=== PATIENT | male | born 1965 | race Caucasian/White ===

== ENCOUNTER → 2021-07-22 09:56 | Outpatient (CLI) | payer OTHER, SELFPAY ==
--- NOTE | 2021-07-22 | DI.MRI.S_ITS ---
PROCEDURE: MR HEAD/BRAIN WO/W CON INDICATIONS: 56-year-old male with history of traumatic brain injury TECHNIQUE: Noncontrast axial T1 spin echo, axial T2 fast spin echo, sagittal and axial FLAIR, coronal T2 fast spin echo, axial gradient echo, axial diffusion and ADC through the brain. After the administration of contrast, axial and coronal 3D VIBE or T1 spin echo with fat saturation through the brain. COMPARISON: [facility], MR, BRAIN WITH AND WITHOUT CONTRAS, 10/16/2005, 18:38. [facility], CT, HEAD WITHOUT CONTRAST, 03/20/2016, 8:26. [facility], MR, BRAIN WITH AND WITHOUT CONTRAS, 11/02/2006, 13:15. FINDINGS: Cerebrum, Cerebellum and Brainstem: Left temporal fluid filled resection cavity is again noted unchanged. There is left frontal encephalomalacia and gliosis stable from the prior exam. No underlying enhancement or change is present. Otherwise, there is mild cerebral and cerebellar volume loss as well as mild multifocal hyperintensities in the deep and subcortical white matter present. The diffusion sequence is normal without evidence of acute infarct. No intracranial hemorrhage, mass lesion or midline shift. Basal cisterns and foramen magnum contain appropriate anatomy and vascular flow voids. No evidence of dural or leptomeningeal thickening. Ventricles: Appropriate in size and position. No hydrocephalus. Skull Base: The bony sella, pituitary gland and infundibulum unremarkable. Clivus and craniovertebral relationships are appropriate. Visualized portions of the seventh and eighth cranial nerve complexes and internal auditory canals are within normal limits. Scalp and Calvarium: Old healed left frontal temporal craniotomy secured by mesh and single round plate. Bony calvarium unremarkable. Paranasal Sinuses: Mild bilateral maxillary sinus mucosal thickening and debris noted along the floors both maxillary sinuses. Mastoids: Unremarkable as visualized. No mastoid effusion present. Orbits: The orbits, globes and ocular muscles are unremarkable. IMPRESSION: 1. Stable left frontotemporal encephalomalacia and gliosis associated with old craniotomy changes, consistent with sequelae of prior traumatic brain injury 2. No acute intracranial findings. No intracranial hemorrhage, acute infarct or mass lesion 3. Mild bilateral maxillary mucosal sinus disease Approved by: Tyrone Miller M.D. on 07/22/2021 at 12:16
== END ==
PROVIDERS: PCP Family Medicine; Referring Provider Family Medicine; Visit Provider Family Medicine
DX: S09.90XD Unspecified injury of head, subsequent encounter (principal); G93.89 Other specified disorders of brain; F07.0 Personality change due to known physiological condition; G40.909 Epilepsy, unspecified, not intractable, without status epilepticus; J32.0 Chronic maxillary sinusitis
CPT/HCPCS: 70553; A9579

== ENCOUNTER → 2021-10-01 13:10 | Outpatient (CLI) | payer OTHER, SELFPAY ==
--- NOTE | 2021-10-01 | DI.RAD.S_ITS ---
PROCEDURE: XR SHOULDER RT MIN 2V INDICATIONS: right shoulder TECHNIQUE: 3 views of the shoulder were acquired. COMPARISON: None. FINDINGS: Bones: No fractures or dislocations. No suspicious bony lesions. Mild degenerative joint disease of the acromioclavicular and glenohumeral joint. There is a prominent under articular osteophyte in the distal clavicle. Visualized ribs appear intact. Soft tissues: Soft tissue calcification the healed head, compatible with rotator cuff calcific tendinitis. IMPRESSION: 1. Mild degenerative joint disease. 2. Calcific tendinitis of the rotator cuff. 3. Prominent undersurface osteophyte in the distal clavicle. Dictated by: August Ghosh M.D. on 10/01/2021 at 17:42 Approved by: August Ghosh M.D. on 10/01/2021 at 17:44
--- NOTE | 2021-10-01 | DI.RAD.S_ITS ---
PROCEDURE: XR HIP W PEL IF DONE RT 2V INDICATIONS: Pain in right hip TECHNIQUE: AP pelvis and lateral view of the right hip acquired. COMPARISON: [facility], , HIP 2V RIGHT, 09/14/2009, 8:51. FINDINGS: Bones: Patient is status post right hip arthroplasty, with hardware components in expected positions. The hip joint appears congruent. The visualized bony structures appear intact. Soft tissues: Overlying postoperative changes are noted. No suspicious soft tissue densities. IMPRESSION: Right hip arthroplasty with prosthesis in anatomic alignment. If clinical symptoms persist or clinical suspicion for prosthesis loosening or infection is high, a triple phase bone scan may be helpful for further evaluation. Dictated by: August Ghosh M.D. on 10/01/2021 at 17:44 Approved by: August Ghosh M.D. on 10/01/2021 at 17:46
== END ==
PROVIDERS: PCP Family Medicine; Referring Provider Family Medicine; Visit Provider Family Medicine
DX: M19.011 Primary osteoarthritis, right shoulder (principal); M75.31 Calcific tendinitis of right shoulder; M25.511 Pain in right shoulder; M70.71 Other bursitis of hip, right hip; Z96.641 Presence of right artificial hip joint
CPT/HCPCS: 73030; 73502

== ENCOUNTER 2022-03-27 10:16 | Emergency (ER) | payer OTHER, SELFPAY ==
[2022-03-27 10:22] VITALS: BP 157/97; PULSE 61; RESP 15; TEMP 36.3; O2SAT 98; BMI 31.1
[2022-03-27 10:59] LABS: COVID19 -Nasal RAPID POSITIVE (Negative)
--- NOTE | 2022-03-27 11:30 | ED.GENADULT ---
HPI - General Adult General Chief complaint: Upper Respiratory Symptoms Stated complaint: Wants covid test- direct contact in ER yesterday Time Seen by Provider: 03/27/22 11:23 Source: patient Mode of arrival: Ambulatory History of Present Illness HPI narrative: 56-year-old male who recently had an exposure to COVID. He states that last evening he started to have some chest congestion and runny nose. Came into the emergency department today for a COVID test. No underlying lung pathology. He has had the COVID vaccine and booster. Related Data Home Medications Medication Instructions Recorded Confirmed BUPRENORPHINE/NALOXONE (SUBOXONE) 1 tab sublingual BID ##0 02/07/13 atenolol 100 mg tablet 100 mg PO QDAY ##0 02/07/13 Allergies Allergy/AdvReac Type Severity Reaction Status Date / Time No Known Drug Allergies Allergy Verified 03/27/22 10:22 Review of Systems Constitutional Constitutional: Reports system reviewed and no additional complaints, except as documented Cardiovascular Cardiovascular: Reports system reviewed and no additional complaints, except as documented Respiratory Respiratory: Reports system reviewed and no additional complaints, except as documented Gastrointestinal Gastrointestinal: Reports system reviewed and no additional complaints, except as documented Hematologic/Lymphatic On Anticoagulants: No Patient History Social History Smoking Status: Unknown if ever smoked Smoking Status: Unknown if ever smoked alcohol intake frequency: holidays/special occasions only Substance Use Type: does not use Exam Initial Vital Signs Initial Vital Signs: Vital Signs Temperature 97.4 F L 03/27/22 10:22 Pulse Rate 61 03/27/22 10:22 Respiratory Rate 15 03/27/22 10:22 Blood Pressure 157/97 H 03/27/22 10:22 Pulse Oximetry 98 03/27/22 10:22 Oxygen Delivery Method 03/27/22 10:22 Const General: cooperative and comfortable HENMT Head: normal to inspection and normocephalic Resp Effort & Inspection: normal respiratory effort Cardio Rate: regular rate Skin General: no rashes or lesions noted Neuro General: patient alert, patient awake and moves all extremities Extrem General: normal to inspection Course Orders Ordered: ED Orders 03/27/22 10:28 COVID19 -Nasal RAPID/Pre-Proc Stat Vital Signs Vital signs: Vital Signs - 8 hr 03/27/22 10:22 Temperature 97.4 F L Pulse Rate 61 Respiratory Rate 15 Blood Pressure 157/97 H Pulse Oximetry 98 Oxygen Delivery Method Room Air Medical Decision Making Lab Data Labs: Lab Results 03/27/22 Range/Units 10:28 SARS-CoV-2 (PCR) Positive H (Negative) MDM Narrative Medical decision making narrative: Well-appearing, not hypoxic. Not tachypneic. No underlying lung pathology. Is COVID positive. I did discuss this with him. We discussed a needs to follow current CDC guidelines. He was given return precautions. He expressed understanding and agreement. Discharge Plan Departure Patient Disposition: Home Clinical Impression: COVID-19 Instructions: DI for COVID-19 (Suspected or Confirmed ) Activity Restrictions/Additional Instructions: Recommend that you continue to take all of your medications as directed. Follow current CDC guidelines with regard to quarantine. Return to the emergency department for any worsening problems breathing. Prescriptions: No Action atenolol 100 MG tablet 100 mg PO QDAY Qty: 0 BUPRENORPHINE/NALOXONE (SUBOXONE) 1 tab Sublingual BID Qty: 0 Referrals: Adalid Keys MD [Primary Care Provider] - Visit Report Forms: Patient Portal/API
== END 2022-03-27 11:36 | disposition home or self-care (01) ==
PROVIDERS: Emergency Provider Emergency Medicine; PCP Family Medicine
DX: U07.1 COVID-19 (principal)
CPT/HCPCS: 87635; 99281; 99282; C9803

== ENCOUNTER 2022-04-13 11:11 | Emergency (ER) | payer OTHER, SELFPAY ==
[2022-04-13] VITALS (9 sets, daily range): BP systolic 143–163; BP diastolic 82–93; PULSE 56–63; RESP 18; TEMP 36.9; O2SAT 93–98; BMI 37.3
--- NOTE | 2022-04-13 11:47 | ED.BACK ---
HPI - Back Pain/Injury General Chief Complaint: Back Pain/Injury Stated Complaint: back pain Time Seen by Provider: 04/13/22 11:46 Source: patient History of Present Illness HPI Narrative: 56-year-old male nonsmoker with prior lumbar fusions, prior traumatic brain injury in prior opioid abuse presents by EMS for evaluation of lower back pain with radiation down both legs. He states that he had been fine in his normal state of health until doing some yd work yesterday and while bending, and twisting while shoveling felt a pull in his lower back. He now has pain that radiates down both legs which is sharp and stabbing. His pain is worse with motion and improves with rest. He denies any numbness, tingling, weakness or footdrop. He denies any use of IV drugs or blood thinners. He denies numbness in his groin or testicles. He denies any loss of control of bowel or bladder. Related Data Home Medications Medication Instructions Recorded Confirmed BUPRENORPHINE/NALOXONE (SUBOXONE) 1 tab sublingual BID ##0 02/07/13 atenolol 100 mg tablet 100 mg PO QDAY ##0 02/07/13 Previous Rx's Medication Instructions Recorded cyclobenzaprine 10 mg tablet 10 mg PO TID PRN muscle spasm #14 04/13/22 tabs gabapentin 300 mg capsule 300 mg PO BEDTIME #14 caps 04/13/22 ketorolac 10 mg tablet 10 mg PO Q6H PRN pain #14 tabs 04/13/22 methylprednisolone 4 mg tablets in See Rx Instructions PO .COMPLEX 04/13/22 a dose pack (Medrol (Juan Carlos)) #21 ea Allergies Allergy/AdvReac Type Severity Reaction Status Date / Time No Known Drug Allergies Allergy Verified 03/27/22 10:22 Review of Systems Review of Systems Narrative: GENERAL: Denies chills, fatigue, malaise, fever, sweats. HEENT: Denies sinus pain, ear pain, sore throat, difficulty swallowing, dizziness. RESPIRATORY: Denies dyspnea, cough, wheezing, hemoptysis, sputum. CARDIOVASCULAR: Denies chest pain, palpitations, orthopnea, edema, GASTROINTESTINAL: Denies nausea, vomiting, abdominal pain, diarrhea, constipation, melena. : Denies dysuria, frequency, incontinence, hematuria, urinary retention. MUSCULOSKELETAL: See HPI SKIN: Denies rash, skin lesions, or other NEUROLOGIC: See HPI PSYCHIATRIC: No concerning psychosocial issues. 12 point review of systems is negative except for those stated above Patient History Social History Smoking Status: Unknown if ever smoked Smoking Status: Unknown if ever smoked alcohol intake frequency: holidays/special occasions only Substance Use Type: does not use Exam Narrative Exam Narrative: GENERAL: [56] year old patient appears stated age. Well-developed patient, in mild distress. HEAD: Atraumatic. Normocephalic. EYES: Pupils equal round and reactive. Extraocular motions intact. No scleral icterus. No injection or drainage. ENT: Nose without bleeding, purulent drainage. Throat without erythema, tonsillar hypertrophy or exudate. Airway patent. NECK: Trachea midline. Non tender CARDIOVASCULAR: Regular rate and rhythm without murmurs, gallops, or rubs. RESPIRATORY: Clear to auscultation. Breath sounds equal bilaterally. No wheezes, rales, or rhonchi. GASTROINTESTINAL: Abdomen soft, non-tender, nondistended. EXTREMITIES: No edema or joint tenderness. BACK: branding machine tender but free of any obvious external abnormalities. Patient exam notes decreased range of motion and muscle spasm, but no CVA tenderness, or vertebral point tenderness. There are no symptoms of cauda equina such as saddle anesthesia, and decreased reflexes, decreased sensation or strength. NEURO: AOx3. SKIN: No rash or erythema of visible areas Initial Vital Signs Initial Vital Signs: Vital Signs Temperature 98.4 F 04/13/22 11:22 Pulse Rate 59 L 04/13/22 11:22 Respiratory Rate 18 04/13/22 11:22 Blood Pressure 157/82 H 04/13/22 11:22 Pulse Oximetry 98 04/13/22 11:22 Oxygen Delivery Method 04/13/22 11:22 Course Orders Ordered: Discontinued Medications Gabapentin (Gabapentin 300 Mg Capsule) 300 mg PO NOW ONE Stop: 04/13/22 12:01 Last Admin: 04/13/22 12:20 Dose: 300 mg Documented By: RB Ketorolac Tromethamine (Ketorolac 30 Mg/Ml Vial) 30 mg IM NOW ONE Stop: 04/13/22 12:01 Last Admin: 04/13/22 12:20 Dose: 30 mg Documented By: RB Prednisone (Prednisone 20 Mg Tablet) 60 mg PO NOW ONE Stop: 04/13/22 12:01 Last Admin: 04/13/22 12:20 Dose: 60 mg Documented By: RB Vital Signs Vital signs: Vital Signs - 8 hr 04/13/22 11:22 Temperature 98.4 F Pulse Rate 59 L Respiratory Rate 18 Blood Pressure 157/82 H Pulse Oximetry 98 Oxygen Delivery Method Room Air MDM - Back Pain/Injury MDM Narrative Medical decision making narrative: Multiple etiologies of back pain considered including; Epidural abscess, cauda equina, mass occupying lesion, and other considered, however no red flag findings suggestive of neurosurgical emergency are present. Return precautions discussed Discharge Plan Departure Patient Disposition: Home Clinical Impression: Acute back pain with radiculopathy Instructions: DI for Lumbar Radiculopathy Activity Restrictions/Additional Instructions: *You have been diagnosed with [lumbar radiculopathy] *What to do: *Please continue to take your regular medications as directed. [x ] New medication prescriptions sent to your pharmacy: [ [facility]] [ ] New medication written as a paper prescription [ ] No new medications given *Please follow up with your primary care provider in 2-3 days, call for an appointment. Let them know you were seen in the Emergency Department and that we ask that you be seen in follow up. We will electronically transmit a record of today's note if your PCP is in our system *Return to Emergency Department if you should have any new, worsening or concerning symptoms, such as [fever greater than 101 F, shaking chills, worsening pain, persistent vomiting or other bothersome symptoms] Prescriptions: New cyclobenzaprine 10 mg tablet 10 mg PO TID PRN (Reason: muscle spasm) Qty: 14 0RF ketorolac 10 mg tablet 10 mg PO Q6H PRN (Reason: pain) Qty: 14 0RF methylprednisolone [Medrol (Juan Carlos)] 4 mg tablets,dose pack See Rx Instructions .ROUTE .COMPLEX Qty: 21 0RF Rx Instructions: orally per package directions gabapentin 300 mg capsule 300 mg PO BEDTIME Qty: 14 0RF No Action atenolol 100 MG tablet 100 mg PO QDAY Qty: 0 BUPRENORPHINE/NALOXONE (SUBOXONE) 1 tab Sublingual BID Qty: 0 Referrals: Ar Ruelas DO [Physician] - Adalid Keys MD [Primary Care Provider] - Visit Report Forms: Patient Portal/API
[2022-04-13] MEDS: GABAPENTIN 300 MG CAPSULE PO (12:20)
[2022-04-13] MEDS: KETOROLAC 30 MG/ML VIAL IM (12:20)
[2022-04-13] MEDS: predniSONE 20 MG TABLET 60 MG PO (12:20)
== END 2022-04-13 13:46 | disposition home or self-care (01) ==
PROVIDERS: Emergency Provider Emergency Medicine; PCP Family Medicine
DX: M54.16 Radiculopathy, lumbar region (principal)
CPT/HCPCS: 96372; 99283; J1885

== ENCOUNTER → 2022-04-23 14:59 | Outpatient (CLI) | payer OTHER, SELFPAY ==
--- NOTE | 2022-04-23 15:02 | DI.RAD.S_ITS ---
PROCEDURE: XR LUMBAR SPINE 2-3V INDICATIONS: RADICULOPAHTY TECHNIQUE: 3 views of the lumbar spine were acquired. COMPARISON: None. FINDINGS: Bones: 5 [id number] vertebrae are present. Multilevel degenerative changes with anterior osteophytes at multiple levels.. Disc space narrowing at L4-5 and L5-S1. Facet arthrosis from L3 through S1. There is normal bony alignment. No vertebral body compression fractures. No suspicious bony lesions. Soft tissues: Overlying bowel gas pattern is normal. No suspicious soft tissue calcifications. IMPRESSION: 1. No acute abnormality. 2. Degenerative disc disease at L4-5 and L5-S1. 3. Facet arthrosis from L3 through S1. Dictated by: Franco Hernandez M.D. on 04/24/2022 at 13:57 Approved by: Franco Hernandez M.D. on 04/24/2022 at 13:58
== END ==
PROVIDERS: PCP Family Medicine; Referring Provider Family Medicine; Visit Provider Family Medicine
DX: M51.16 Intervertebral disc disorders with radiculopathy, lumbar region (principal); M51.17 Intervertebral disc disorders with radiculopathy, lumbosacral region; M47.26 Other spondylosis with radiculopathy, lumbar region; M47.27 Other spondylosis with radiculopathy, lumbosacral region
CPT/HCPCS: 72100

== ENCOUNTER 2023-02-01 16:47 | Emergency (ER) | payer OTHER, SELFPAY ==
[2023-02-01 16:52] VITALS: BP 144/86; PULSE 58; RESP 18; TEMP 36.4; O2SAT 98; BMI 35.2
[2023-02-01] MEDS: PROPARACAINE 0.5% OPHTH SOL 1 DROPS EYE-RIGHT (17:10)
--- NOTE | 2023-02-01 17:30 | ED_ITS ---
HPI - Eye Problem <Yisel Rubin PA-C - Last Filed: 02/01/23 17:50> General Chief complaint: Eye Problems Stated complaint: SUPER GLUE IN RIGHT EYE Time Seen by Provider: 02/01/23 17:03 Mode of arrival: Ambulatory History of Present Illness HPI Narrative: Patient is a 57-year-old male who presents after accidentally getting crazy super glue in his right eye when he was trying to glue some rubber on the sole of his shoe. He immediately felt a foreign body sensation and rinsed his eye out with tap water. He reports he can see out of the eye an open and close it adequately but still has a foreign body sensation. This occurred about 15 minutes before he arrived in the emergency department. He denies previous eye problems, wears reading glasses. He denies any headache, fever, other symptoms. Related Data Home Medications Medication Instructions Recorded Confirmed BUPRENORPHINE/NALOXONE (SUBOXONE) 1 tab sublingual BID ##0 02/07/13 atenolol 100 mg tablet 100 mg PO QDAY ##0 02/07/13 Previous Rx's Medication Instructions Recorded cyclobenzaprine 10 mg tablet 10 mg PO TID PRN muscle spasm #14 04/13/22 tabs gabapentin 300 mg capsule 300 mg PO BEDTIME #14 caps 04/13/22 ketorolac 10 mg tablet 10 mg PO Q6H PRN pain #14 tabs 04/13/22 methylprednisolone 4 mg tablets in See Rx Instructions PO .COMPLEX 04/13/22 a dose pack (Medrol (Juan Carlos)) #21 ea erythromycin 5 mg/gram (0.5 %) eye 1 cm EYE-RIGHT QID 5 days #50 grams 02/01/23 ointment Allergies Allergy/AdvReac Type Severity Reaction Status Date / Time No Known Drug Allergies Allergy Verified 03/27/22 10:22 Review of Systems <Yisel Rubin PA-C - Last Filed: 02/01/23 17:50> Review of Systems ROS Unobtainable: All systems reviewed & are unremarkable except as noted in HPI and below Patient History <Yisel Rubin PA-C - Last Filed: 02/01/23 17:50> Social History Smoking Status: Former smoker Smoking Status: Former smoker alcohol intake frequency: holidays/special occasions only Substance Use Type: does not use Exam <Yisel Rubin PA-C - Last Filed: 02/01/23 17:50> Narrative Exam Narrative: GENERAL: 57 year old patient appears stated age. Well-developed patient, in no distress. NEURO: AOx3. HEAD: Atraumatic. Normocephalic. EYES: Pupils equal round and reactive. Extraocular motions intact. No scleral icterus. No injection. Mild clear drainage. No visible abnormality with ophthalmoscope and visual inspection. Eye anesthetized with proparacaine and fluorescein applied. Wood's lamp exam consistent with corneal abrasion which appears linear from the center of the pupil down to the 4 o'clock position. No other abrasions or abnormalities noted. ENT: Nose without bleeding or purulent drainage. RESPIRATORY: No distress. SKIN: No rash or erythema of visible areas Initial Vital Signs Initial Vital Signs: Vital Signs Temperature 97.6 F 02/01/23 16:52 Pulse Rate 58 L 02/01/23 16:52 Respiratory Rate 18 02/01/23 16:52 Blood Pressure 144/86 H 02/01/23 16:52 Pulse Oximetry 98 02/01/23 16:52 Oxygen Delivery Method Room Air 02/01/23 16:52 <Rocío Degroot DO - Last Filed: 02/02/23 08:04> Initial Vital Signs Initial Vital Signs: Vital Signs Temperature 97.6 F 02/01/23 16:52 Pulse Rate 58 L 02/01/23 16:52 Respiratory Rate 18 02/01/23 16:52 Blood Pressure 144/86 H 02/01/23 16:52 Pulse Oximetry 98 02/01/23 16:52 Oxygen Delivery Method Room Air 02/01/23 16:52 Course <Yisel Rubin PA-C - Last Filed: 02/01/23 17:50> Orders Ordered: Discontinued Medications Erythromycin (Erythromycin Ophth 1 Gm Oint) 1 applic EYE-RIGHT NOW ONE Stop: 02/01/23 17:30 Last Admin: 02/01/23 17:36 Dose: 1 applic Documented By: RB Proparacaine HCl (Proparacaine 0.5% Ophth Ifeoma) 1 drops EYE-RIGHT NOW ONE Stop: 02/01/23 17:04 Last Admin: 02/01/23 17:10 Dose: 1 drops Documented By: KB Vital Signs Vital signs: Vital Signs - 8 hr 02/01/23 16:52 Temperature 97.6 F Pulse Rate 58 L Respiratory Rate 18 Blood Pressure 144/86 H Pulse Oximetry 98 Oxygen Delivery Method Room Air <Rocío Degroot DO - Last Filed: 02/02/23 08:04> Orders Ordered: Discontinued Medications Erythromycin (Erythromycin Ophth 1 Gm Oint) 1 applic EYE-RIGHT NOW ONE Stop: 02/01/23 17:30 Last Admin: 02/01/23 17:36 Dose: 1 applic Documented By: SASKIA Proparacaine HCl (Proparacaine 0.5% Ophth Ifeoma) 1 drops EYE-RIGHT NOW ONE Stop: 02/01/23 17:04 Last Admin: 02/01/23 17:10 Dose: 1 drops Documented By: ALBERTINA Vital Signs Vital signs: Vital Signs - 8 hr 02/01/23 16:52 Temperature 97.6 F Pulse Rate 58 L Respiratory Rate 18 Blood Pressure 144/86 H Pulse Oximetry 98 Oxygen Delivery Method Room Air MDM - Eye Problem <Yisel Rubin PA-C - Last Filed: 02/01/23 17:50> MDM Narrative Medical decision making narrative: Multiple etiologies for patient's symptoms considered including, but not limited to: Corneal abrasion, chemical conjunctivitis, chemical burn. Wood's lamp exam with fluorescein staining shows corneal abrasion, no evidence of foreign body. Irrigated with 1 L normal saline. Erythromycin ointment applied and prescription given/ Patient discharged with erythromycin ointment and instructed to follow up this week with Ophthalmology. May return to previous [employer] shop or contact [facility]. Patient's symptoms improved over duration of stay with above-stated therapies. Findings and discharge diagnosis discussed with patient/family followed by verbalization of understanding Return precautions discussed with patient/family whom verbalize understanding of diagnosis and plan Discharge Plan Departure Patient Disposition: Home Clinical Impression: Corneal abrasion Instructions: DI for Corneal Abrasion Activity Restrictions/Additional Instructions: *You have been diagnosed with a corneal abrasion. Please use the other erythromycin ointment 4 times a day. Call [facility] or other ophthalmology clinic to schedule follow-up this week. *What to do: *Please continue to take your regular medications as directed. [ x] New medication prescriptions sent to your pharmacy: [[facility] in [place]] [ ] New medication written as a paper prescription [ ] No new medications given *Please follow up with your primary care provider in 2-3 days, call for an appointment. Let them know you were seen in the Emergency Department and that we ask that you be seen in follow up. We will electronically transmit a record of today's note if your PCP is in our system *If you do not have a primary care provider please contact the [facility] Resource line at [phone]. They will ask some questions about your medical history and help get you set up with a doctor in the community. *Return to Emergency Department if you should have any new, worsening or concerning symptoms, such as [fever greater than 101 F, shaking chills, worsening pain, persistent vomiting or other bothersome symptoms] Prescriptions: New erythromycin 5 mg/gram (0.5 %) ointment 1 cm EYE-RIGHT QID 5 Days Qty: 50 0RF No Action atenolol 100 MG tablet 100 mg PO QDAY Qty: 0 BUPRENORPHINE/NALOXONE (SUBOXONE) 1 tab Sublingual BID Qty: 0 cyclobenzaprine 10 mg tablet 10 mg PO TID PRN (Reason: muscle spasm) Qty: 14 0RF ketorolac 10 mg tablet 10 mg PO Q6H PRN (Reason: pain) Qty: 14 0RF methylprednisolone [Medrol (Juan Carlos)] 4 mg tablets,dose pack See Rx Instructions .ROUTE .COMPLEX Qty: 21 0RF Rx Instructions: orally per package directions gabapentin 300 mg capsule 300 mg PO BEDTIME Qty: 14 0RF Referrals: [facility] [Provider Group] Adalid Keys MD [Primary Care Provider] - Stand Alone Forms: Patient Portal/API <Rocío Degroot DO - Last Filed: 02/02/23 08:04> [facility] Att[facility]: I was immediately available in the department for consultation. Documentation has been reviewed.
[2023-02-01] MEDS: ERYTHROMYCIN OPHTH 1 GM OINT 1 APPLIC EYE-RIGHT (17:36)
[2023-02-01 17:56] VITALS: BP 138/77; PULSE 68; O2SAT 98
== END 2023-02-01 17:57 | disposition home or self-care (01) ==
PROVIDERS: Emergency Provider Physician Assistant; PCP Family Medicine
DX: S05.01XA Injury of conjunctiva and corneal abrasion without foreign body, right eye, initial encounter (principal)
CPT/HCPCS: 99282; 99284

== ENCOUNTER → 2023-09-05 10:21 | Outpatient (CLI) | payer OTHER, SELFPAY ==
--- NOTE | 2023-09-05 10:23 | DI.MRI.S_ITS ---
PROCEDURE: MR PELVIC PROSTATE PROTOCOL INDICATIONS: Elevated PSA TECHNIQUE: Coronal HASTE, axial T1 FSE with fat saturation, 3-plane nonbreath-hold T2 FSE. After the administration of contrast, dynamic axial, delayed axial and coronal VIBE or 2-D FLASH with fat saturation through the pelvis. Diffusion weighted imaging and ADC was performed. COMPARISON: None. FINDINGS: Image quality: Nondiagnostic diffusion-weighted images due to distortion from adjacent pelvic metallic artifact and large rectal gas. Prostate: Prostate measures 5.8 x 4.9 x 5.8 cm. Estimated volume is 86 cc. Transitional zone heterogenous nodules are present, either well encapsulated or mostly encapsulated, compatible with PI-RADS 1 or 2 likely BPH nodules. This is the predominant abnormality in this MRI. Mildly T2 hypointense heterogenous striated appearance of the peripheral zone is commonly seen with current or prior prostatitis, PI-RADS 2. More focal area hypointensity is seen in the posterolateral mid gland peripheral zone measuring 1.4 x 0.9 x 1.1 cm (6/21, 5/16). T2 score 3. DWI nondiagnostic. DCE positive. PI-RADS 4. Genitourinary system: Bladder appears unremarkable, but under distended. No dilation of the distal ureters. Bowel and peritoneum: No pathologic ascites or bowel obstruction in the lower abdomen. Nodes and vessels: Prominent pelvic lymph nodes are present, indeterminate in the setting of elevated PSA. None are enlarged by size criteria. No aneurysmal vessel. Soft tissues: Small fat containing inguinal hernias. Bones: Right pelvic hardware and hip arthroplasty, with surrounding metallic artifact. IMPRESSION: Limited MRI due to nondiagnostic diffusion-weighted images. There is significant distortion from rectal gas and pelvic metallic hardware. Within this limitation, there is a PI-RADS 4 lesion in the right posterolateral mid gland peripheral zone. Differential includes a focal area of more significant prostatitis sequela. The predominant abnormality is prostatomegaly and BPH. Other findings above Dictated by: lFo Angulo M.D. on 09/07/2023 at 8:16 Approved by: Flo Angulo M.D. on 09/07/2023 at 8:25
== END ==
PROVIDERS: PCP Family Medicine; Referring Provider Urology; Visit Provider Urology
DX: N40.0 Benign prostatic hyperplasia without lower urinary tract symptoms (principal); R97.20 Elevated prostate specific antigen [PSA]; K40.90 Unilateral inguinal hernia, without obstruction or gangrene, not specified as recurrent; Z96.641 Presence of right artificial hip joint
CPT/HCPCS: 72197; A9579

== ENCOUNTER 2023-11-10 11:25 | Emergency (ER) | payer OTHER, SELFPAY ==
[2023-11-10 11:32] VITALS: BP 147/97; PULSE 86; RESP 16; TEMP 36; O2SAT 100; BMI 33.2
--- NOTE | 2023-11-10 11:48 | DI.RAD.S_ITS ---
PROCEDURE: XR FINGER RT MIN 2V INDICATIONS: cut finger/r/o foreign object TECHNIQUE: AP hand, 2 views of the right 4th finger(s) acquired. COMPARISON: None. FINDINGS: Bones: No fractures or dislocations. No suspicious bony lesions. Soft tissues: No suspicious soft tissue calcifications. No radiodense foreign body. IMPRESSION: No acute bony abnormality. No radiodense foreign body. Dictated by: Jaimee Mcleod MD, PhD on 11/10/2023 at 12:26 Approved by: Jaimee Mcleod MD, PhD on 11/10/2023 at 12:27
[2023-11-10] MEDS: IBUPROFEN 400 MG TABLET 800 MG PO (11:58)
--- NOTE | 2023-11-10 12:12 | ED.WOUNDLAC ---
HPI - Wound/Laceration <Leonel Green PA-C - Last Filed: 11/10/23 13:45> General Chief Complaint: Wound/Laceration Stated Complaint: Right ring finger bleeding. May need stitches Time Seen by Provider: 11/10/23 11:37 Source: patient Mode of arrival: Ambulatory History of Present Illness HPI narrative: 58-year-old male with past medical history hypertension presents to the ED status post a laceration sustained to the right ring finger. Patient states he was working on an awning, when he accidentally injured his right ring finger on a piece of jagged metal. Patient's Tdap is up-to-date, was a year ago. Patient denies numbness, tingling, weakness. There is full range of motion. Bleeding is controlled with pressure. Patient is not on blood thinners. Related Data Home Medications Medication Instructions Recorded Confirmed BUPRENORPHINE/NALOXONE (SUBOXONE) 1 tab sublingual BID ##0 02/07/13 09/28/23 atenolol 100 mg tablet 100 mg PO QDAY ##0 02/07/13 09/28/23 Allergies Allergy/AdvReac Type Severity Reaction Status Date / Time No Known Drug Allergies Allergy Verified 11/10/23 11:34 Review of Systems <Leonel Green PA-C - Last Filed: 11/10/23 13:45> Constitutional Constitutional: Denies chills, Denies fatigue, Denies fever(s), Denies frequent falls, Denies lethargy and Denies weakness Eyes Eyes: Denies change in vision, Denies eye discharge, Denies irritation and Denies loss of vision ENT Ears, Nose, Mouth, and Throat: Denies change in voice, Denies dizziness, Denies neck pain, Denies sore throat and Denies throat swelling Cardiovascular Cardiovascular: Denies chest pain, Denies irregular heart rhythm, Denies lightheadedness, Denies palpitations, Denies dyspnea, Denies dyspnea on exertion and Denies orthopnea Respiratory Respiratory: Denies cough, Denies dyspnea, Denies dyspnea on exertion and Denies wheezing Gastrointestinal Gastrointestinal: Denies abdominal pain, Denies change in bowel habits, Denies diarrhea, Denies nausea and Denies vomiting Musculoskeletal Musculoskeletal: Denies neck pain and Denies numbness Integumentary/Breasts Skin/Breast: Denies pruritus, Denies erythema, Denies rash and Reports wounds Neurologic Neurologic: Denies behavioral changes, Denies confusion, Denies dizziness, Denies frequent falls, Denies loss of vision, Denies numbness and Denies weakness Psychiatric Psychiatric: Denies anxiety, Denies behavioral changes, Denies confusion, Denies depression, Denies homicidal ideation and Denies suicidal ideation Endocrine Endocrine: Denies fatigue, Denies flushing and Denies palpitations Hematologic/Lymphatic Hematologic/Lymphatic: Denies easy bruising Allergic/Immunologic Allergic/Immunologic: Denies urticaria, Denies throat swelling and Denies wheezing Patient History <Leonel Green PA-C - Last Filed: 11/10/23 13:45> Medical History Abnormal finding on imaging Family history of renal failure Incomplete emptying of bladder Urinary hesitancy Lower urinary tract symptoms Elevated PSA Social History Smoking Status: Former smoker Smoking Status: Former smoker alcohol intake frequency: holidays/special occasions only Substance Use Type: does not use Exam <Leonel Green PA-C - Last Filed: 11/10/23 13:45> Narrative Exam Narrative: Const General:?cooperative, healthy appearing and comfortable [facility] Head:?normal to inspection Ears:?hearing grossly normal bilaterally Nose:?external nose normal Face and sinus:?normal facial exam and sinuses nontender Mouth:?oral mucosae normal Throat:?posterior oropharynx normal Eyes General:?appearance normal, both eyes and all related structures Neck Neck:?normal visual inspection and no lymphadenopathy noted Resp Effort & Inspection:?normal respiratory effort Auscultation:?clear to auscultation bilaterally Cardio Rate:?regular rate Rhythm:?regular rhythm Integumentary There is a 2 cm linear laceration to the right ring finger in the distal phalangeal region. Bleeding controlled with pressure. Strength and sensation intact. Neurovascularly intact. Neuro General:?patient alert, patient awake and patient oriented x3 Initial Vital Signs Initial Vital Signs: Vital Signs Temperature 96.8 F L 11/10/23 11:32 Pulse Rate 86 11/10/23 11:32 Respiratory Rate 16 11/10/23 11:32 Blood Pressure 147/97 H 11/10/23 11:32 Pulse Oximetry 100 11/10/23 11:32 Oxygen Delivery Method Room Air 11/10/23 11:32 <DO Keshawn Khan Last Filed: 11/10/23 13:55> Initial Vital Signs Initial Vital Signs: Vital Signs Temperature 96.8 F L 11/10/23 11:32 Pulse Rate 86 11/10/23 11:32 Respiratory Rate 16 11/10/23 11:32 Blood Pressure 147/97 H 11/10/23 11:32 Pulse Oximetry 100 11/10/23 11:32 Oxygen Delivery Method Room Air 11/10/23 11:32 Procedures <Leonel Green PA-C - Last Filed: 11/10/23 13:45> Laceration Repair Laceration 1: Site: hand Side (If applicable): right Size (cm): 2 Description: flap Local Anesthetic: lidocaine 1% Amount of anesthesia used (mL): 2 Pre-repair: wound explored, irrigated extensively and deep structures intact Skin layer closed with: nylon Skin layer suture size: 5-0 Number of sutures: 6 Technique: simple, interrupted Course <Leonel Green PA-C - Last Filed: 11/10/23 13:45> Orders Ordered: ED Orders 11/10/23 11:48 XR finger RT min 2V Stat Discontinued Medications Bacitracin (Bacitracin Oint 0.9 Gm Pckt) 1 applic TOP NOW ONE Stop: 11/10/23 13:35 Last Admin: 11/10/23 13:40 Dose: 1 applic Documented By: STEPHEN Ibuprofen (Ibuprofen 400 Mg Tablet) 800 mg PO NOW ONE Stop: 11/10/23 11:54 Last Admin: 11/10/23 11:58 Dose: 800 mg Documented By: STEPHEN Lidocaine HCl (Lidocaine 1% (Pf) 5 Ml) 10 ml INJ NOW ONE Stop: 11/10/23 12:06 Last Admin: 11/10/23 12:17 Dose: 5 ml Documented By: STEPHEN Vital Signs Vital signs: Vital Signs - 8 hr 11/10/23 11:32 11/10/23 13:51 Temperature 96.8 F L 97.6 F Pulse Rate 86 52 L Respiratory Rate 16 18 Blood Pressure 147/97 H 130/89 Pulse Oximetry 100 98 Oxygen Delivery Method Room Air Room Air <DO Keshawn Kahn Last Filed: 11/10/23 13:55> Orders Ordered: ED Orders 11/10/23 11:48 XR finger RT min 2V Stat Discontinued Medications Bacitracin (Bacitracin Oint 0.9 Gm Pckt) 1 applic TOP NOW ONE Stop: 11/10/23 13:35 Last Admin: 11/10/23 13:40 Dose: 1 applic Documented By: STEPHEN Ibuprofen (Ibuprofen 400 Mg Tablet) 800 mg PO NOW ONE Stop: 11/10/23 11:54 Last Admin: 11/10/23 11:58 Dose: 800 mg Documented By: STEPHEN Lidocaine HCl (Lidocaine 1% (Pf) 5 Ml) 10 ml INJ NOW ONE Stop: 11/10/23 12:06 Last Admin: 11/10/23 12:17 Dose: 5 ml Documented By: STEPHEN Vital Signs Vital signs: Vital Signs - 8 hr 11/10/23 11:32 11/10/23 13:51 Temperature 96.8 F L 97.6 F Pulse Rate 86 52 L Respiratory Rate 16 18 Blood Pressure 147/97 H 130/89 Pulse Oximetry 100 98 Oxygen Delivery Method Room Air Room Air MDM - Wound/Laceration <Leonel Green PA-C - Last Filed: 11/10/23 13:45> MDM Narrative Medical decision making narrative: 58-year-old male with past medical history hypertension presents to the ED status post a laceration sustained to the right ring finger. Concern for fracture/dislocation versus laceration versus retained foreign body versus other. Will obtain x-ray. Will give ibuprofen for pain. Will repair laceration with sutures. X-ray without acute findings. Laceration was repaired with 6 sutures. Sutures will need to be removed in 7-10 days. Wound care, signs of infection, suture removal discussed with patient. ED return precautions discussed with patient. Patient verbalized understanding. Medical records reviewed: Yes Discharge Plan Departure Patient Disposition: Home Clinical Impression: Laceration Instructions: DI for Laceration Repair Activity Restrictions/Additional Instructions: You were evaluated in the ED today for a finger injury. The cut was repaired with 6 sutures. The sutures will need to be removed in 7-10 days. You may return to the ED, go to your PCP's office or a walk-in clinic for suture removal. Please watch for signs of infection including worsening redness, pain, warmth, swelling, discharge. Return to the ED if you note any signs of infection or you experience numbness, tingling, weakness. You may take ibuprofen and Tylenol for pain relief. Please keep the wound clean and dry for the 1st 24 hours, following which you may wash gently with soap and water. Please make sure to completely dry the wound before you re-dress it. Prescriptions: No Action atenolol 100 MG tablet 100 mg PO QDAY Qty: 0 BUPRENORPHINE/NALOXONE (SUBOXONE) 1 tab Sublingual BID Qty: 0 Referrals: Adalid Keys MD [Primary Care Provider] - Stand Alone Forms: Patient Portal/API ED Sign-out <Miles Rodney DO - Last Filed: 11/10/23 13:55> Cosign ED Attending Cosignature Attestation: Dr Rodney Co-Sign Statement: I was available for consultation during this patient's emergency department visit. This chart is signed by myself for administrative purposes only. I did not have direct contact with this patient during this visit. They were seen independently by the APC.
[2023-11-10] MEDS: LIDOCAINE 1% (PF) 5 ML 10 ML INJ (12:17)
[2023-11-10] MEDS: BACITRACIN OINT 0.9 GM PCKT 1 APPLIC TOP (13:40)
[2023-11-10 13:51] VITALS: BP 130/89; PULSE 52; RESP 18; TEMP 36.4; O2SAT 98
== END 2023-11-10 13:52 | disposition home or self-care (01) ==
PROVIDERS: Emergency Provider Student in an Organized Health Care Education/Training Program; PCP Family Medicine
DX: S61.214A Laceration without foreign body of right ring finger without damage to nail, initial encounter (principal); W26.8XXA Contact with other sharp object(s), not elsewhere classified, initial encounter
CPT/HCPCS: 12001; 73140; 99283; 99284

== ENCOUNTER → 2023-12-16 13:46 | Outpatient (CLI) | payer OTHER, SELFPAY ==
[2023-12-16 15:31] LABS: Appearance Urine UA CLEAR; Bilirubin Urine UA NEGATIVE (NEGATIVE); Color Urine UA YELLOW; Glucose Urine UA NEGATIVE (Negative); Ketones Urine UA NEGATIVE (NEGATIVE); Leukocyte Esterase Urine UA NEGATIVE (NEGATIVE); Nitrite Urine UA NEGATIVE (Negative); Occult Blood Urine UA NEGATIVE (Negative); Protein Urine UA NEGATIVE (Negative)
[2023-12-16 16:04] LABS: Bacteria Urine None Seen; Culture Indicated Urine Cult Not Indicated; RBC Urine None Seen (0-5/HPF); Squamous Epithelial Cell Urine None Seen (0-5/HPF); Urine Volume 10mL (spun); WBC Urine None Seen (0-5/HPF)
== END ==
PROVIDERS: PCP Family Medicine; Referring Provider Urology; Visit Provider Urology
DX: R97.20 Elevated prostate specific antigen [PSA] (principal); R33.9 Retention of urine, unspecified; R39.9 Unspecified symptoms and signs involving the genitourinary system
CPT/HCPCS: 36415; 81001; 84153

== ENCOUNTER → 2023-12-30 09:32 | Outpatient (CLI) | payer OTHER, SELFPAY ==
[2024-01-01 07:36] LABS: PSA Free % 27.8 % (.); PSA, Total 4.9 ng/mL (0.0-4.0)
== END ==
PROVIDERS: PCP Family Medicine; Referring Provider Urology; Visit Provider Urology
DX: R97.20 Elevated prostate specific antigen [PSA] (principal)
CPT/HCPCS: 36415; 84153; 84154

== ENCOUNTER → 2024-04-06 08:50 | Outpatient (CLI) | payer OTHER, SELFPAY ==
[2024-04-07 13:36] LABS: PSA Free % 29.6 % (.); PSA, Total 5.4 ng/mL (0.0-4.0)
== END ==
PROVIDERS: PCP Family Medicine; Referring Provider Urology; Visit Provider Urology
DX: R97.20 Elevated prostate specific antigen [PSA] (principal)
CPT/HCPCS: 36415; 84153; 84154

== ENCOUNTER 2024-05-11 05:15 | Emergency (ER) | payer OTHER, SELFPAY ==
[2024-05-11 05:15] VITALS: BP 160/99; PULSE 65; RESP 20; TEMP 36.3; O2SAT 97; BMI 34.2
--- NOTE | 2024-05-11 05:15 | ED.MALEGU ---
HPI - Male Genitourinary General Chief complaint: Urogenital-Male Stated complaint: Unable to urinate Time Seen by Provider: 05/11/24 05:30 Source: patient, EMS, RN notes reviewed and old records reviewed Mode of arrival: EMS Limitations: no limitations History of Present Illness HPI Narrative: 58-year-old male history of TBI, hypertension, prostate cancer under active surveillance. Patient states last night had no issues this morning when he went to get up to urinate felt like he could not empty his bladder. Had difficulty urinating contacted EMS and was transported. Did urinate here, states he feels improved. Denies any dysuria states he does have some chronic frequency but also drinks a lot of fluids. Denies any fevers or chills. No nausea or vomiting. No new abdominal back or flank pain. Does have some chronic low back pain she states it is improved from his normal. States he did have a bowel movement this morning. Denies any incontinence. Patient denies any drug allergies. Related Data Home Medications Medication Instructions Recorded Confirmed BUPRENORPHINE/NALOXONE (SUBOXONE) 1 tab sublingual BID ##0 02/07/13 04/21/24 atenolol 100 mg tablet 100 mg PO QDAY ##0 02/07/13 04/21/24 amlodipine 10 mg tablet 10 mg PO DAILY 04/21/24 04/21/24 buprenorphine HCl 8 mg sublingual 8 mg sublingual DAILY 04/21/24 04/21/24 tablet escitalopram oxalate 10 mg tablet 10 mg PO DAILY 04/21/24 04/21/24 lisinopril 20 1 tab PO BID 04/21/24 04/21/24 mg-hydrochlorothiazide 12.5 mg tablet Allergies Allergy/AdvReac Type Severity Reaction Status Date / Time No Known Drug Allergies Allergy Verified 04/21/24 08:49 Review of Systems Review of Systems ROS Unobtainable: All systems reviewed & are unremarkable except as noted in HPI and below Patient History Medical History Prostate cancer Abnormal finding on imaging Family history of renal failure Incomplete emptying of bladder Urinary hesitancy Lower urinary tract symptoms Elevated PSA Social History Smoking Status: Former smoker Exam Narrative Exam Narrative: GENERAL: Alert and oriented x three, well-appearing male in mild distress. HEENT: Head normocephalic, atraumatic, EOMI, pupils reactive, face symmetric, moist mucous membranes NECK: Supple, full range of motion CARDIOVASCULAR: Regular rate and rhythm without murmurs, rubs or gallops. RESPIRATORY: Breath sounds equal bilaterally, no wheezes rales or rhonchi. ABDOMEN: Soft, nontender. Normoactive bowel sounds all 4 quadrants. No guarding or rebound, rigidity, no mass : No CVA tenderness EXTREMITIES: Normal range of motion, no clubbing or edema. Neurovascularly intact NEUROLOGICAL: Cranial nerves II through XII grossly intact. Moving all extremities SKIN: Warm, dry, no petechiae, no rashes or lesions. Initial Vital Signs Initial Vital Signs: Vital Signs Temperature 97.4 F L 05/11/24 05:15 Pulse Rate 65 05/11/24 05:15 Respiratory Rate 20 05/11/24 05:15 Blood Pressure 160/99 H 05/11/24 05:15 Pulse Oximetry 97 05/11/24 05:15 Oxygen Delivery Method Room Air 05/11/24 05:15 Course Orders Ordered: ED Orders 05/11/24 05:30 Urine Microscopic Stat 05/11/24 05:31 Consult to THERAPIST - Artificial Breast [employer]ricator Stat Vital Signs Vital signs: Vital Signs - 8 hr 05/11/24 05:15 Temperature 97.4 F L Pulse Rate 65 Respiratory Rate 20 Blood Pressure 160/99 H Pulse Oximetry 97 Oxygen Delivery Method Room Air MDM - Male Genitourinary Lab Data Labs: Lab Results 05/11/24 Range/Units 05:30 Urine RBC 0-1/hpf (0-5/HPF) Urine WBC 0-1/hpf (0-5/HPF) Ur Squamous Epith Cells 0-1 /hpf (0-5/HPF) Amorphous Sediment 1+ Urine Bacteria None seen (None) Ur Culture Indicated? Cult not indicated Vol Urine Centrifuged 10ml (spun) Urine Dip Bedside Urine Glucose Negative Bedside Urine Bilirubin - Negative Bedside Urine Ketone - Negative Urine Specific [place] 1.010 Bedside Urine Occult Blood - Negative Bedside Urine pH 7.0 Bedside Urine Protein - Negative Bedside Urine Urobilinogen - Negative Bedside Urine Nitrite - Negative Bedside Urine Leukocytes - Negative Esterase MDM Narrative Medical decision making narrative: Patient arrived via EMS ambulated to the bathroom was able to give a urine sample postvoid residual was proximally 100 mL. Patient felt that he was retaining this morning and not able to urinate but was able to urinate once he arrived. Denies any other symptoms. Does have a history of prostate cancer currently under surveillance with Urology last visit was not 04/21/2024 does have known BPH. Point of care urine is negative, urine microscopy shows 1 red cell 1 white cell 1 squamous no bacteria. Patient states he does feel like he needs to urinate was able to go to the bathroom and urinate again. Discussed plan for follow up with Urology having persistent but mild symptoms. If having new retention or other new or concerning changes patient is to return for re-evaluation. Discharge Plan Departure Patient Disposition: Home Clinical Impression: Urinary hesitancy Activity Restrictions/Additional Instructions: Follow up with Urology if you are having persistent difficulty with starting urination or other new urinary symptoms. Social work may reach out to you for resources. Continue your home medications as prescribed. Please return for fevers, new abdominal back or flank pain, inability to urinate, black or bloody stools or other new or concerning changes. Prescriptions: No Action atenolol 100 MG tablet 100 mg PO QDAY Qty: 0 BUPRENORPHINE/NALOXONE (SUBOXONE) 1 tab Sublingual BID Qty: 0 lisinopril-hydrochlorothiazide 20-12.5 mg tablet 1 tab PO BID escitalopram oxalate 10 mg tablet 10 mg PO DAILY amlodipine 10 mg tablet 10 mg PO DAILY buprenorphine HCl 8 mg tablet, sublingual 8 mg sublingual DAILY Referrals: Adalid Keys MD [Primary Care Provider] - Stand Alone Forms: Patient Portal/API/Survey
[2024-05-11 06:18] LABS: Amorphous Sediment Urine 1+; Bacteria Urine None Seen; Culture Indicated Urine Cult Not Indicated; RBC Urine 0-1/HPF (0-5/HPF); Squamous Epithelial Cell Urine 0-1 /HPF (0-5/HPF); Urine Volume 10mL (spun); WBC Urine 0-1/HPF (0-5/HPF)
== END 2024-05-11 06:41 | disposition home or self-care (01) ==
PROVIDERS: Emergency Provider Emergency Medicine; PCP Family Medicine
DX: R39.11 Hesitancy of micturition (principal)
CPT/HCPCS: 51798; 81003; 81015; 99282; 99283

== ENCOUNTER → 2024-07-05 11:31 | Outpatient (CLI) | payer MEDICARE, SELFPAY ==
[2024-07-07 12:39] LABS: PSA Free % 27.6 % (.)
== END ==
PROVIDERS: PCP Family Medicine; Referring Provider Urology; Visit Provider Urology
DX: R97.20 Elevated prostate specific antigen [PSA] (principal)
CPT/HCPCS: 36415; 84153; 84154

== ENCOUNTER → 2024-08-16 09:29 | Outpatient (CLI) | payer MEDICARE, SELFPAY ==
[2024-08-17 10:39] LABS: PSA Free % 29.4 % (.); PSA, Total 5.4 ng/mL (0.0-4.0)
== END ==
PROVIDERS: PCP Family Medicine; Referring Provider Urology; Visit Provider Urology
DX: C61 Malignant neoplasm of prostate (principal)
CPT/HCPCS: 36415; 84153; 84154

== ENCOUNTER → 2024-10-05 08:19 | Outpatient (CLI) | payer MEDICARE, SELFPAY ==
[2024-10-06 07:41] LABS: PSA Free % 29.8 % (.); PSA, Total 4.6 ng/mL (0.0-4.0)
== END ==
PROVIDERS: PCP Family Medicine; Referring Provider Urology; Visit Provider Urology
DX: R33.9 Retention of urine, unspecified (principal); R39.11 Hesitancy of micturition; C61 Malignant neoplasm of prostate; R97.20 Elevated prostate specific antigen [PSA]
CPT/HCPCS: 36415; 84153; 84154; 87086

== ENCOUNTER → 2024-11-19 15:24 | Outpatient (CLI) | payer MEDICARE, SELFPAY ==
--- NOTE | 2024-11-19 15:28 | DI.MRI.S_ITS ---
PROCEDURE: MR HEAD/BRAIN WO/W CON INDICATIONS: traumatic brain injury TECHNIQUE: Noncontrast axial T1 spin echo, axial T2 fast spin echo, sagittal and axial FLAIR, coronal T2 fast spin echo, axial gradient echo, axial diffusion and ADC through the brain. After the administration of contrast, axial and coronal and sagittal T1 spin echo with fat saturation through the brain. COMPARISON: [facility], MR, MR HEAD/BRAIN WO/W CON, 07/22/2021, 10:22. FINDINGS: Image quality: Excellent. CSF spaces: Basal cisterns are patent. No extra-axial fluid collections. Ventricles are normal in size and shape. Brain: Redemonstration of left frontal encephalomalacia and a small focus of right frontal encephalomalacia. Left temporal resection cavity is redemonstrated with surrounding encephalomalacia and gliosis. No midline shift. No intracranial bleeds or masses. No abnormal intracranial enhancement. There is minimal periventricular white matter chronic small vessel ischemic change. The brainstem appears normal. Diffusion-weighted images demonstrate no acute infarct. No chronic ischemic insults. Normal intravascular flow voids are present. Skull and face: Left-sided craniotomy. Calvarial marrow is normal in signal. Orbits appear normal. Sinuses: Mild maxillary sinus mucosal thickening. Sinuses and mastoids otherwise appear clear. IMPRESSION: Stable posttraumatic and postsurgical changes as described above. No new acute intracranial abnormalities or abnormal intracranial enhancement. Dictated by: Shai Savage M.D. on 11/20/2024 at 14:57 Approved by: Shai Savage M.D. on 11/20/2024 at 15:01
== END ==
LOC: MRI 15:26
PROVIDERS: PCP Family Medicine; Referring Provider Family Medicine; Visit Provider Family Medicine
DX: S06.9X9S Unspecified intracranial injury with loss of consciousness of unspecified duration, sequela (principal); G93.89 Other specified disorders of brain; X58.XXXS Exposure to other specified factors, sequela
CPT/HCPCS: 70553; A9579

== ENCOUNTER → 2024-11-23 12:15 | Outpatient (CLI) | payer MEDICARE, SELFPAY ==
--- NOTE | 2024-11-23 12:18 | DI.RAD.S_ITS ---
PROCEDURE: XR HIP W PEL IF DONE LT 2V INDICATIONS: BACK AND HIP PAIN TECHNIQUE: Two views of the left hip were acquired. COMPARISON: [facility], CR, XR HIP W PEL IF DONE RT 2V, 10/01/2021, 13:05. FINDINGS: Bones: There are no osseous abnormalities. SI and hip joints: Right total hip prostheses remains in stable alignment without evidence of loosening or infection. Small amount of heterotopic ossification in the right pericapsular region seen as before. Mild left hip degeneration is stable. The SI joints are normal. Moderate L5-S1 degenerative disc facet disease is seen. Soft tissues: No soft tissue swelling, calcification or mass. IMPRESSION: Chronic findings-stable Dictated by: Fito Greene M.D. on 11/24/2024 at 12:28 Approved by: Fito Greene M.D. on 11/24/2024 at 12:29
--- NOTE | 2024-11-23 12:19 | DI.RAD.S_ITS ---
PROCEDURE: XR LUMBAR SPINE 2-3V INDICATIONS: BACK AND HIP PAIN TECHNIQUE: 3 views of the lumbar spine were acquired. COMPARISON: [facility], CR, XR LUMBAR SPINE 2-3V, 04/23/2022, 15:31. FINDINGS: Lumbar spine curvature and alignment: Normal. Bones: There are no osseous abnormalities. Disc spaces: Mild L4-5 moderate L5-S1 degenerative disc and facet disease appreciated Intervertebral foramen: Grossly normal in width. Soft tissues: No soft tissue swelling, calcification or mass. IMPRESSION: Mild L4-5 moderate L5-S1 degenerative disc and facet disease Dictated by: Fito Greene M.D. on 11/24/2024 at 12:29 Approved by: Fito Greene M.D. on 11/24/2024 at 12:29
--- NOTE | 2024-11-23 12:19 | DI.RAD.S_ITS ---
PROCEDURE: XR FEMUR LT MIN 2V INDICATIONS: BACK AND HIP PAIN TECHNIQUE: 2 views of the femur were acquired. COMPARISON: None. FINDINGS: Bones: There are no osseous abnormalities Joints: Moderate left hip and mild tibiofemoral patellofemoral degeneration noted. Soft tissues: No soft tissue abnormality. IMPRESSION: Degeneration. Dictated by: Fito Greene M.D. on 11/24/2024 at 12:27 Approved by: Fito Greene M.D. on 11/24/2024 at 12:27
== END ==
LOC: RAD 12:16
PROVIDERS: PCP Family Medicine; Referring Provider Family Medicine; Visit Provider Family Medicine
DX: M51.369 Other intervertebral disc degeneration, lumbar region without mention of lumbar back pain or lower extremity pain (principal); M51.379 Other intervertebral disc degeneration, lumbosacral region without mention of lumbar back pain or lower extremity pain; M47.816 Spondylosis without myelopathy or radiculopathy, lumbar region; M47.817 Spondylosis without myelopathy or radiculopathy, lumbosacral region; M16.12 Unilateral primary osteoarthritis, left hip; M25.552 Pain in left hip; M54.42 Lumbago with sciatica, left side; C61 Malignant neoplasm of prostate; Z96.641 Presence of right artificial hip joint; G89.29 Other chronic pain
CPT/HCPCS: 72100; 73502; 73552

== ENCOUNTER 2025-01-01 10:12 | Emergency (ER) | payer MEDICARE, SELFPAY ==
[2025-01-01] VITALS (9 sets, daily range): BP systolic 100–137; BP diastolic 70–87; PULSE 58–68; RESP 18; TEMP 36.5–36.7; O2SAT 94–97; BMI 32.3
--- NOTE | 2025-01-01 11:00 | ED_ITS ---
HPI - Extremity Problem General Chief complaint: Extremity Problem,Nontraumatic Stated complaint: LT big toe red, swollen Time Seen by Provider: 01/01/25 10:26 Source: patient Mode of arrival: Ambulatory History of Present Illness HPI Narrative: Mr. Guerin is a very pleasant 59-year-old male with past medical history of traumatic brain injury, hypertension, prostate cancer who presents to the emergency department for left great toe redness/swelling/ingrown toenail times 3-4 months. Patient states about 4 months ago he was trimming his toenails when he accidentally cut it too short and since then he has been suffering with a painful and swollen toe and an ingrown toenail on the lateral side. The toe was now started to become much more red and is draining pus. States that he was able to rip out the ingrown portion of the toenail at home however it continues to get more infected. No fevers, chills, flu-like symptoms. No redness or streaking erythema up the leg. No history of prior ingrown toenails, he has never seen a signal maintenance technician. No history of diabetes. No antibiotic allergies. Related Data Home Medications ?Medication ?Instructions ?Recorded ?Confirmed amlodipine 10 mg tablet 10 mg PO DAILY 04/21/2412/07 buprenorphine HCl 8 mg sublingual 8 mg sublingual TATA Y 04/21/24 10/18/24 tablet escitalopram oxalate 10 mg tablet 10 mg PO DAILY 04/2110/18/24 lisinopril 20 1 tab PO BID 04/21/24 mg-hydrochlorothiazide 12.5 mg tablet Previous Rx's ?Medication ?Instructions ?Recorded atenolol 100 mg tablet 100 mg PO QDAY #90 tabs 03/09 fluticasone propionate 50 1 spray intranasal BID PRN a llergy 06/23/24 mcg/actuation nasal symptoms #16 grams spray,suspension (Flonase Allergy Relief) polyethylene glycol 3350 17 gram 17 g PO DAILY #30 ea 06/23/24 oral powder packet (Miralax) tamsulosin 0.4 mg capsule 0.8 mg (2 x 0.4 mg) PO DAILY #180 08/18/24 caps doxycycline hyclate 100 mg capsule 100 mg PO BID 7 day s #14 caps 01/01/25 Allergies Allergy/AdvReac Type Severity Reaction Status Date / Time No Known Drug Allergies Allergy Verified 01/01/25 10:19 Review of Systems Review of Systems ROS Unobtainable: All systems reviewed & are unremarkable except as noted in HPI and below Patient History Medical History Nocturia BPH w urinary obs/LUTS Prostate cancer Abnormal finding on imaging Family history of renal failure Incomplete emptying of bladder Urinary hesitancy Lower urinary tract symptoms Elevated PSA Social History Smoking Status: Never smoker Smoking Status: Never smoker alcohol intake frequency: holidays/special occasions only Exam Narrative Exam Narrative: GENERAL: 59 year old patient appears stated age. Well-developed patient, in no acute distress. HEAD: Atraumatic. Normocephalic. EYES: No scleral icterus. No injection or drainage. NECK: Trachea midline. Cervical ROM intact. CARDIOVASCULAR: Regular rate RESPIRATORY: ?Nonlabored respirations. ?Speaking in clear, full sentences. EXTREMITIES: Erythema, edema, purulent drainage on the lateral fold of the left great toenail. Patient has excessive skin overgrowth over the nail plate. Mild erythema extending on the base of the nail but no involvement of the medial nail folds. No erythema spreading onto the foot. Strong DP and PT pulses and brisk capillary refill distal to the great toe nail. NEURO: AOx3. ?Clear speech. ?Moves all 4 extremities appropriately. SKIN: Warm, dry, no rashes. Erythema and edema of left great toe described above. Initial Vital Signs Initial Vital Signs: Vital Signs Pulse Rate 68 01/01/25 10:16 Pulse Oximetry 97 01/01/25 10:16 Procedures [facility] [place] Name of Procedure: Ingrown toenail Removal Side (if applicable): left Location: Lateral nail fold Technique/Description of procedure performed: A digital block was performed using 2% lidocaine, 3 mL. 1 mL of additional lidocaine was needed after initial block. Blunt dissection was performed using a hemostat to lift up the embedded lateral nail fold, it was then cut with scissors and easily removed. The exposed nail fold was extensively cleansed using Betadine. Patient tolerated the procedure well. Bacitracin and a dressing was applied. Course Orders Ordered: Discontinued Medications Bacitracin (Bacitracin Oint 0.9 Gm Pckt) 1 applic TOP NOW ONE Stop: 01/01/25 11:17 Last Admin: 01/01/25 11:34 Dose: 1 applic Documented By: MANNY Doxycycline Hyclate (Doxycycline Hyclate 100 Mg Tablet) 100 mg PO NOW ONE Stop: 01/01/25 11:30 Last Admin: 01/01/25 11:33 Dose: 100 mg Documented By: MANNY Lidocaine HCl (Lidocaine 2% Inj Sdv 5ml) 10 ml INJ INTRA-OP ONE Stop: 01/01/25 10:46 Last Admin: 01/01/25 11:04 Dose: 10 ml Documented By: MANNY Vital Signs Vital signs: Vital Signs - 8 hr 01/01/25 10:16 01/01/25 10:17 01/01/25 10:17 Temperature Pulse Rate 68 65 Respiratory Rate Blood Pressure 137/85 Pulse Oximetry 97 97 Oxygen Delivery Method 01/01/25 10:19 01/01/25 10:30 01/01/25 10:30 Temperature 97.7 F Pulse Rate 67 63 Respiratory Rate 18 Blood Pressure 137/85 133/87 Pulse Oximetry 96 96 Oxygen Delivery Method Room Air 01/01/25 11:00 01/01/25 11:01 01/01/25 11:01 Temperature Pulse Rate 58 L 58 L Respiratory Rate Blood Pressure 100/70 Pulse Oximetry 95 96 Oxygen Delivery Method 01/01/25 11:30 01/01/25 11:30 01/01/25 12:00 Temperature Pulse Rate 60 62 Respiratory Rate Blood Pressure 128/79 Pulse Oximetry 94 97 Oxygen Delivery Method 01/01/25 12:01 01/01/25 12:01 Temperature 98.1 F Pulse Rate 61 Respiratory Rate 18 Blood Pressure 132/86 Pulse Oximetry 95 Oxygen Delivery Method MDM - Extremity (Nontraumatic) Medical Records Attestation: I reviewed the patient's medical records. MDM Narrative Medical decision making narrative: 59-year-old male with past medical history of traumatic brain injury, hypertension, prostate cancer who presents to the emergency department for left great toe redness/swelling/ingrown toenail times 3-4 months. Differential diagnosis includes but is not limited to ingrown toenail, paronychia, cellulitis, etc. On exam patient is in no acute distress, nontoxic-appearing, all vital signs within normal limits. Patient was initially evaluated by ED attending physician and patient's foot was soaked in warm water and Hibiclens prior to me meeting him. After removing his foot from the soak, he states that his symptoms have improved significantly. We will proceed with digital block and drainage of paronychia and ingrown toenail removal if present below the overgrown skin. 1120: Lateral digital block performed, patient tolerated procedure well, 2 mL of 2% lidocaine w/o epi used. Lateral nail was removed, patient tolerated procedure well, bacitracin and a dressing was applied. Discussed proper wound care and the importance of follow up with Podiatry to prevent recurrence. Antibiotics sent to pharmacy of choice. Discussed ED return precautions. Recommended Tylenol ibuprofen for pain. Patient verbalized understanding of all information agreeable with the plan. He is stable for discharge home. Discharge Plan Departure Patient Disposition: Home Clinical Impression: Paronychia of great toe, left, Ingrowing left great toenail Instructions: DI for Paronychia Activity Restrictions/Additional Instructions: Dear Truong, Thank you for coming to the emergency department. Today we removed your left ingrown toenail, applied antibiotic ointment, and started you on antibiotics. Please complete the full course of antibiotics. Apply antibiotic ointment such as bacitracin to the toe every day and keep it clean and covered at all times. Please wash this toe 2 to 3 times a day, you can use warm water soaks with a Hibiclens soap that we provided you with or even antibiotic dial soap. It is very important to follow up with a signal maintenance technician/foot doctor for this ingrown toenail will return. You may schedule an appointment with [facility] or with the signal maintenance technician listed below. Please take Ibuprofen (Motrin/Advil) or Acetaminophen (Tylenol) for pain. These are available over the counter. You may take Ibuprofen 600 mg every 8 hours with food for pain. You may also take Acetaminophen 650 mg every 4-6 hours for pain. Do not exceed 3000 mg of Tylenol a day as this can cause liver damage. Do not drink alcohol with either of these medications. Please follow up with your primary care doctor within the next 2-3 days for ER follow-up. (If you do not have a PCP you can call [phone]. ?to schedule an appointment with an [facility] Primary Care Provider) IF YOU DEVELOP ANY NEW OR WORSENING SYMPTOMS, RETURN TO THE ER! Please read the attached instructions, they highlight more specific treatments and interventions for you at home. Thank you for letting me participate in your care, Jenny Cui PA-C Prescriptions: New doxycycline hyclate 100 mg capsule 100 mg PO BID 7 Days Qty: 14 0RF No Action atenolol 100 mg tablet 100 mg PO QDAY Qty: 90 0RF fluticasone propionate [Flonase Allergy Relief] 50 mcg/actuation spray,suspension 1 spray intranasal BID PRN (Reason: allergy symptoms) Qty: 16 0RF Rx Instructions: administer into each nostril polyethylene glycol 3350 [Miralax] 17 gram powder in packet 17 g PO DAILY Qty: 30 6RF tamsulosin 0.4 mg capsule 0.8 mg PO DAILY Qty: 180 3RF lisinopril-hydrochlorothiazide 20-12.5 mg tablet 1 tab PO BID escitalopram oxalate 10 mg tablet 10 mg PO DAILY amlodipine 10 mg tablet 10 mg PO DAILY buprenorphine HCl 8 mg tablet, sublingual 8 mg sublingual DAILY Referrals: Cedric Palacios MD [Primary Care Provider, Family Practice] Stand Alone Forms: Patient Portal/API
[2025-01-01] MEDS: LIDOCAINE 2% INJ SDV 5ML 10 ML INJ (11:04)
--- NOTE | 2025-01-01 11:13 | PC.NURSE ---
Provider at bedside for wound evaluation, pt states toe feels and looks better after soaking, provider given lidocaine for procedure. Pt able to bear weight on left foot and ambulated into bed from chair, RA, NAD, A&Ox4, breathing even/equal/unlabored at this time. Call light within reach, no other needs at this time
[2025-01-01] MEDS: DOXYCYCLINE HYCLATE 100 MG TABLET PO (11:33)
[2025-01-01] MEDS: BACITRACIN OINT 0.9 GM PCKT 1 APPLIC TOP (11:34)
== END 2025-01-01 12:22 | disposition home or self-care (01) ==
PROVIDERS: Emergency Provider Physician Assistant; PCP Family Medicine
DX: U07.1 COVID-19 (principal)
CPT/HCPCS: 99283

== ENCOUNTER → 2025-01-04 11:42 | Outpatient (CLI) | payer MEDICARE, SELFPAY ==
[2025-01-04 13:58] LABS: Prostate Specific Antigen 5.64 ng/mL (0.10-4.00)
== END ==
LOC: LAB 11:43
PROVIDERS: PCP Family Medicine; Referring Provider Urology; Visit Provider Urology
DX: C61 Malignant neoplasm of prostate (principal); R97.20 Elevated prostate specific antigen [PSA]
CPT/HCPCS: 36415; 84153

== ENCOUNTER → 2025-03-09 11:08 | Outpatient (CLI) | payer MEDICARE, SELFPAY ==
--- NOTE | 2025-03-09 11:12 | DI.RAD.S_ITS ---
PROCEDURE: XR FOOT RT MIN 3V INDICATIONS: R FOOT PAIN TECHNIQUE: 3 views of the foot were acquired. COMPARISON: None. FINDINGS: Bones: No fractures or dislocations. No suspicious bony lesions. No bone erosion. Severe osteoarthritis, most pronounced at the 1st MTP joint. Soft tissues: No tibiotalar joint effusion. Achilles tendon appears normal. IMPRESSION: No acute abnormality. Osteoarthritis. Dictated by: Julio Lafleur M.D. on 03/09/2025 at 16:46 Approved by: Julio Lafleur M.D. on 03/09/2025 at 16:46
== END ==
LOC: RAD 11:10
PROVIDERS: PCP Family Medicine; Referring Provider Internal Medicine; Visit Provider Internal Medicine
DX: M79.671 Pain in right foot (principal); M19.071 Primary osteoarthritis, right ankle and foot
CPT/HCPCS: 73630